=== PATIENT | male | born 1975 | race Caucasian/White ===

== ENCOUNTER 2018-02-08 10:33 | Day surgery (SDC) | payer BC ==
[~2018-02-08 10:33] MED LIST: LIDOCAINE HCL 1% MPF SOL ONE; PROPOFOL 500 MG/50 ML EMU IV ONE
[2018-02-08 12:17] VITALS: BP 145/89; PULSE 66; RESP 20; TEMP 97.4; O2SAT 97
== END 2018-02-08 12:37 | disposition home or self-care (01) ==
LOC: SURG 10:33
PROVIDERS: ATTEND Surgery
DX: R13.10 Dysphagia, unspecified (principal); Z80.0 Family history of malignant neoplasm of digestive organs
CPT/HCPCS: 99001; J2001; J2704